=== PATIENT | female | born 1995 | race Caucasian/White ===

== ENCOUNTER 2019-05-15 23:59 | Emergency (ER) | payer OTHER ==
[~2019-05-15] VITALS: Ht 167.6 cm; Wt 78.9 kg
[~2019-05-15 23:59] MED LIST: APAP500; BREO ELLIPTA 11 EACH; CELEXA 20 MG TA20 MG PO; DAYSEE 0.15-0.1 EACH; DEXAMETHASONE 44 M1 PO; PROAIR RESPICL90 MCG; XOPENEX HFA15 GM; ZPAK PO
[2019-05-16] MEDS ORDERED: SERTRALINE HCL100 MG PO (00:11)
[2019-05-16 00:50] LABS: INFLUENZA A ANTIGEN Negative (Negative); INFLUENZA B ANTIGEN Negative (Negative)
[2019-05-16 01:31] LABS: URINE BILIRUBIN NEGATIVE (Negative); URINE BLOOD NEGATIVE (Negative); URINE CLARITY CLEAR; URINE COLOR YELLOW; URINE GLUCOSE-RANDOM NEGATIVE (Negative); URINE KETONES NEGATIVE (Negative); URINE LEUKOCYTES-REFLEX NEGATIVE (Negative); URINE NITRITE-REFLEX NEGATIVE (Negative); URINE PROTEIN NEGATIVE (Negative); URINE UROBILINOGEN 0.2 E.U./dl (0.2-1.0)
[2019-05-16] MEDS ORDERED: PROAIR HFA8.5 GM INH (01:54)
[2019-05-16] MEDS ORDERED: ZOFRAN ODT4 MG PO (01:54)
[2019-05-16 02:04] VITALS: BP 128/78
== END 2019-05-16 02:36 | disposition home or self-care (01) ==
LOC: M.ERS 23:59
PROVIDERS: Emergency Medicine
DX: J98.8 Other specified respiratory disorders (principal); J45.909 Unspecified asthma, uncomplicated; Z88.6 Allergy status to analgesic agent

== ENCOUNTER 2021-03-08 20:39 | Emergency (ER) | payer BC ==
[~2021-03-08] VITALS: Ht 167.6 cm; Wt 86.2 kg
[~2021-03-08 20:39] MED LIST changes: +PROAIR HFA8.5 GM INH; +SERTRALINE HCL100 MG PO; +ZOFRAN ODT4 MG PO
[2021-03-08] MEDS ORDERED: WELLBUTRIN 75 M75 M1 PO (20:53)
[2021-03-08 22:03] LABS: URINE BILIRUBIN NEGATIVE (Negative); URINE BLOOD NEGATIVE (Negative); URINE CLARITY CLEAR; URINE COLOR YELLOW; URINE GLUCOSE-RANDOM NEGATIVE (Negative); URINE LEUKOCYTES-REFLEX NEGATIVE (Negative); URINE NITRITE-REFLEX NEGATIVE (Negative); URINE PROTEIN TRACE (Negative); URINE SPECIFIC GRAVITY >= 1.030 (1.005-1.030); URINE UROBILINOGEN 0.2 E.U./dl (0.2-1.0)
[2021-03-08 22:17] LABS: URINE KETONES 3+ (Negative)
[2021-03-08 22:19] LABS: ACETEST (KETONE CONFIRMATORY) Large (Negative)
[2021-03-08 23:08] VITALS: BP 123/70
== END 2021-03-08 23:09 | disposition home or self-care (01) ==
LOC: M.ERS 20:39
PROVIDERS: Emergency Medicine
DX: U07.1 COVID-19 (principal); L08.9 Local infection of the skin and subcutaneous tissue, unspecified; R20.0 Anesthesia of skin; R20.2 Paresthesia of skin; J45.909 Unspecified asthma, uncomplicated; Z96.22 Myringotomy tube(s) status; Z98.890 Other specified postprocedural states; Z79.899 Other long term (current) drug therapy; Z88.8 Allergy status to other drugs, medicaments and biological substances